=== PATIENT | male | born 2000 | race Two or more races ===

== ENCOUNTER 2025-03-11 16:46 | Emergency (ER) | payer OTHER ==
[~2025-03-11] VITALS: Ht 175.3 cm; Wt 108.3 kg
[2025-03-11 17:25] VITALS: TEMP 98.5
[2025-03-11 18:12] LABS: Urine Protein, UAD Negative (Negative)
[2025-03-11 18:35] LABS: Hematocrit 48.9 % (41.0-53.0); Hemoglobin 16.6 g/dL (13.5-17.5); Mean Corpuscular Hemoglobin 27.9 pg (28.0-32.0); Mean Corpuscular Volume 82.3 fL (80.0-100.0); Nucleated Red Blood Cells % 0.1 %
[2025-03-11 18:58] LABS: Alkaline Phosphatase 78 U/L (46-116); Anion Gap 10 (5-15); BUN/Creatinine Ratio 13.8 (10.0-20.0); Blood Urea Nitrogen 13 mg/dL (9-23); Carbon Dioxide 29 mmol/L (20-31); Chloride 105 mmol/L (98-107); Glucose 91 mg/dL (74-106); Potassium 4.1 mmol/L (3.5-5.1); Sodium 144 mmol/L (136-145); Total Protein 7.7 g/dL (5.7-8.2)
[2025-03-11 18:59] LABS: Bilirubin, Total 0.4 mg/dL (0.2-1.0)
[2025-03-11 19:00] LABS: Alanine Aminotransferase 49 U/L (7-40); Albumin 5.2 g/dL (3.2-4.8); Calcium 10.5 mg/dL (8.7-10.4)
--- NOTE | 2025-03-11 19:04 | DVH ---
ULTRASOUND OF SCROTUM AND CONTENTS. INDICATION: R testicular swelling r/o torsion COMPARISON: None TECHNIQUE: Multiple real-time grayscale sonographic and color and duplex Doppler images of the scrotu m and its contents were obtained. FINDINGS: The right testicle measures 3.8 cm. The left testicle measures 4.5 cm. Both testicles demonstrate homogeneous echotexture without evidence of focal lesions. Type calcificat ions are seen bilaterally, benign The right epididymal head is not clearly visualized. The left epididymal head measures up to 1 cm an d is unremarkable Subsequent color and duplex Doppler interrogation of the testes demonstrated symmetric normal vascula r flow to both testicles. Small fat containing right inguinal hernia is incidentally noted. No focal areas of hyperemia were seen. IMPRESSION: 1. No evidence of testicular torsion or left-sided epididymitis. 2. Please note that the right epididymal head was not clearly visualized in this examination 3. Small fat containing right inguinal hernia is incidentally noted.
[2025-03-11] MEDS: KETOROLAC TROMETH 60MG/2ML VIAL IM ONE (19:15)
--- NOTE | 2025-03-11 19:15 | ED.PDOC ---
General HPI Comments 24y M who presents to the ED for chief complaint of groin pain. Pt states he has been having lower abdominal pain radiating to the R groin since Sunday, for the past 4 days. Pt states he has also noticed increased swelling to the R testicle since. Pt states the pain is sharp, intermittent, with no associated exacerbating or relieving factors. Pt has no associated symptoms. Pt otherwise has noted stable vitals with temp of 98.5F, RR, 18, heart rate 76 and BP of 131/84. Pt otherwise denies any other symptoms at this time. Chief Complaint: Abdominal Pain Time Seen by MD: 18:30 Primary Care Provider: NONE Reviewed notes: Medications, Allergies Allergies: Coded Allergies: NO KNOWN ALLERGIES (Unverified , 03/11/25) Home Meds Active Scripts Hydrocodone-Acetaminophen (Hydrocodone Bitartrate/AC 5-325 mg) 1 Tab Tab, 1 TAB PO Q6HP PRN, #20 TAB Prn breakthrough pain Prov:SHABNAM PANDA MD 03/11/25 Ibuprofen Micronized (Ibuprofen) 800 Mg Tab, 800 MG PO Q8HP PRN, #30 TAB Prn pain. Take with food. Prov:SHABNAM PANDA MD 03/11/25 Information Source: Patient Mode of Arrival: Ambulatory Past Medical History PAST MEDICAL HISTORY: Denies Surgical History: Denies all surgeries Family History Family History: Reviewed,noncontributory to illness Social History Smoker: Non-Smoker Alcohol: Denies ETOH Use Drugs: Denies Drug Use Constitutional: denies: chills, diaphoresis, fatigue, fever, malaise, sweats, weakness, others EENTM: denies: blurred vision, double vision, ear bleeding, ear discharge, ear drainage, ear pain, ear ringing, eye pain, eye redness, hearing loss, mouth pain, mouth swelling, nasal discharge, nose bleeding, nose congestion, nose pain, photophobia, tearing, throat pain, throat swelling, voice changes, others Respiratory: denies: cough, hemoptysis, orthopnea, SOB at rest, shortness of breath, SOB with excertion, stridor, wheezing, others Cardiovascular: denies: chest pain, dizzy spells, diaphoresis, Dyspnea on exertion, edema, irregular heart beat, left arm pain, lightheadedness, palpitations, PND, syncope, others Gastrointestinal: reports: abdominal pain; denies: abdomen distended, blood streaked bowels, constipated, diarrhea, dysphagia, difficulty swallowing, hematemesis, melena, nausea, poor appetite, poor fluid intake, rectal bleeding, rectal pain, vomiting, others Genitourinary: reports: testicle swelling; denies: burning, dysuria, flank pain, frequency, hematuria, incontinence, penile discharge, penile sore, pain, testicle pain, urgency, others Neurological: denies: dizziness, fainting, headache, left sided numbness, left sided weakness, numbness, paresthesia, pre-existing deficit, right sided numbness, right sided weakness, seizure, speech problems, tingling, tremors, weakness, others Musculoskeletal: denies: back pain, gout, joint pain, joint swelling, muscle pain, muscle stiffness, neck pain, others Integumetry: denies: bruises, change in color, change in hair/nails, dryness, laceration, lesions, lumps, rash, wounds, others Allergic/Immunocompromised: denies: Difficulty Healing, Frequent Infections, Hives, Itching, others Hematologic/Lymphatic: denies: anemia, blood clots, easy bleeding, easy bruising, swollen glands, others Endocrine: denies: excessive hunger, excessive sweating, excessive thirst, excessive urination, flushing, intolerance to cold, intolerance to heat, une xplained weight gain, unexplained weight loss, others Psychiatric: denies: anxiety, bipolar disorder, depression, hopeless, panic disorder, schizophrenia, sleepless, suicidal, others All Other Systems: Reviewed and Negative Physical Exam General Appearance: No Apparent Distress, Obese HEENT: Other (Pupils and face symmetric. Moist mucous membranes.) Neck: Full Range of Motion, Normal Inspection Respiratory: Lungs Clear, No Accessory Muscle Use, No Respiratory Distress, Normal Breath Sounds Cardiovascular: No Edema, No JVD, Regular Rate/Rhythm Breast Exam: Deferred Gastrointestinal: Soft, Suprapubic, Tenderness Genitalia: Other (Prominence of the right scrotal area with soft tissue tenderness. No discoloration. Normal testicular lie.) Pelvic: Deferred Rectal: Deferred Extremities: Normal inspection, Normal range of motion, Non-tender, No pedal edema Neurologic: Alert (Oriented x4), Normal Affect, Normal Mood, Other (Ambulatory) Cerebellar Function: NOT DONE Reflexes: NOT DONE Skin: Dry, Normal Color, Warm Lymphatic: NOT DONE Was a procedure done? Was a procedure done?: Yes Sedation Sedation?: No Other Procedure Procedure Manual reduction of indirect right inguinal hernia Indication Indirect right inguinal hernia with omental fat Anesthetic None Success Pain improved. Informed consent obtained: Yes Risks, benefits, and alternati: Yes Notes Reduction was performed using direct digital pressure within the right inguinal canal. The procedure was performed by Kenneth Ron NP under my direct supervision . Patient reported persistent but improved pain postprocedure. Differential Diagnosis Kidney stone (Female): N/A Penile/Scrotal: Epidiymitis, Prostatitis, STD, UTI, Hydrocele, Testicular Torsion, Other (hernia, kidney stone, among others) X-Ray, Labs, Meds, VS Vital Signs Date Time Temp Pulse Resp B/P (MAP) Pulse Ox O2 Delivery O2 Flow Rate FiO2 03/11/25 19:24 76 18 96 Room Air* 0 21 03/11/25 19:24 76 19 131/84 (100) 96 03/11/25 17:25 98.5 76 18 131/84 (100) 96 98.5 Lab Test 03/11/25 18:21 03/11/25 17:40 Range/Units White Blood Count 8.2 4.4-10.8 10^3/uL Red Blood Count 5.94 H 4.5-5.90 10^6/uL Hemoglobin 16.6 13.5-17.5 g/dL Hematocrit 48.9 41.0-53.0 % Mean Corpuscular Volume 82.3 80.0-100.0 fL Mean Corpuscular Hemoglobin 27.9 L 28.0-32.0 pg Mean Corpuscular Hemoglobin Concent 33.9 32.0-36.0 g/dL Red Cell Distribution Width 13.6 11.8-14.3 % Platelet Count 343 140-450 10^3/uL Mean Platelet Volume 7.5 6.9-10.8 fL Neutrophils (%) (Auto) 68.6 37.0-80.0 % Lymphocytes (%) (Auto) 23.1 10.0-50.0 % Monocytes (%) (Auto) 7.2 0.0-12.0 % Eosinophils (%) (Auto) 0.6 0.0-7.0 % Basophils (%) (Auto) 0.5 0.0-2.0 % Neutrophils # (Auto) 5.6 1.6-8.6 10 ^3/uL Lymphocytes # (Auto) 1.9 0.4-5.4 10 ^3/uL Monocytes # (Auto) 0.6 0-1.3 10 ^3/uL Eosinophils # (Auto) 0 0-0.8 10 ^3/uL Basophils # (Auto) 0 0-0.2 10 ^3/uL Nucleated Red Blood Cells 0.1 % Sodium Level 144 136-145 mmol/L Potassium Level 4.1 3.5-5.1 mmol/L Chloride Level 105 98-107 mmol/L Carbon Dioxide Level 29 20-31 mmol/L Anion Gap 10 5-15 Blood Urea Nitrogen 13 9-23 mg/dL Creatinine 0.94 0.700-1.30 mg/dL Glomerular Filtration Rate Calc 116 >90 mL/min BUN/Creatinine Ratio 13.8 10.0-20.0 Serum Glucose 91 74-106 mg/dL Calcium Level 10.5 H 8.7-10.4 mg/dL Total Bilirubin 0.4 0.2-1.0 mg/dL Aspartate Amino Transferase (AST) 22 13-40 U/L Alanine Aminotransferase (ALT) 49 H 7-40 U/L Alkaline Phosphatase 78 46-116 U/L Total Protein 7.7 5.7-8.2 g/dL Albumin 5.2 H 3.2-4.8 g/dL Urine Color Yellow Yellow Urine Clarity Clear Clear Urine pH 6.0 5.0-9.0 Urine Specific [place] 1.031 1.001-1.035 Urine Protein Negative Negative Urine Ketones Negative Negative Urine Blood Negative Negative /uL Urine Nitrite Negative Negative Urine Bilirubin Negative Negative Urine Urobilinogen Normal Negative mg/dL Urine Leukocyte Esterase Negative Negative /uL Urine RBC 2 0 - 3 /hpf Urine Microscopic WBC 1 0-3 /HPF Urine Squamous Epithelial Cells Few <5 /hpf Urine Bacteria None seen None Seen /hpf Urine Mucus Few None Seen Urine Glucose Normal Normal mg/dL Current Medications Medications (Trade) Dose Ordered Sig/Woody Route Start Time Stop Time Status Last Admin Ketorolac Tromethamine (Toradol Injection) 60 mg ONCE ONCE IM 03/11/25 18:15 03/11/25 18:41 DC 03/11/25 19:[address] [address] Ph: [phone] DIAGNOSTIC IMAGING Diagnostic Imaging Report : [id number] Signed PATIENT: BAIRON FONTANEZ ACCT: [id number] UNIT: [id number] : 2000 LOC: ER ROOM / BED: / AGE / SEX: 24 / M ADM STATUS: REG ER SERVICE 180 ORDERING PHYSICIAN: SHABNAM PANDA MD PROCEDURE(s): TESUS - TESTICULAR ULTRASOUND REASON: R testicular swelling r/o torsion ORDER NUMBER(s): [id number], ACCESSION NUMBER(s): [id number] ULTRASOUND OF SCROTUM AND CONTENTS. INDICATION: R testicular swelling r/o torsion COMPARISON: None TECHNIQUE: Multiple real-time grayscale sonographic and color and duplex Doppler images of the scrotum and its contents were obtained. FINDINGS: The right testicle measures 3.8 cm. The left testicle measures 4.5 cm. Both testicles demonstrate homogeneous echotexture without evidence of focal lesions. Type calcifications are seen bilaterally, benign The right epididymal head is not clearly visualized. The left epididymal head measures up to 1 cm and is unremarkable Subsequent color and duplex Doppler interrogation of the testes demonstrated symmetric normal vascular flow to both testicles. Small fat containing right inguinal hernia is incidentally noted. No focal areas of hyperemia were seen. IMPRESSION: 1. No evidence of testicular torsion or left-sided epididymitis. 2. Please note that the right epididymal head was not clearly visualized in this examination 3. Small fat containing right inguinal hernia is incidentally noted. ATED BY: LISSETTE GARRIDO MD DICTATED DATE/TIME: 03/11/251901 SIGNED BY: LISSETTE GARRIDO MD SIGNED DATE/TIME: 03/11/251901 CC: [address] [address] Ph: [phone] DIAGNOSTIC IMAGING Diagnostic Imaging Report : [id number] Signed PATIENT: BAIRON FONTANEZ ACCT: [id number] UNIT: [id number] : 2000 LOC: ER ROOM / BED: / AGE / SEX: 24 / M ADM STATUS: REG ER SERVICE 07 ORDERING PHYSICIAN: SHABNAM PANDA MD PROCEDURE(s): ABPL - CT AB PEL WO CON-NO ORAL OR IV REASON: low abd pain radiating to R testicle ORDER NUMBER(s): [id number], ACCESSION NUMBER(s): [id number] COMPUTERIZED TOMOGRAPHY ABDOMEN AND PELVIS WITHOUT CONTRAST REASON FOR EXAM: low abd pain radiating to R testicle COMPARISON: None TECHNIQUE: Spiral scans were acquired from the diaphragm to the symphysis pubis without intravenous contrast administration. 2-D coronal and sagittal reformatted images were provided. Radiation optimization: All CT scans at this facility use at least one of these dose optimization techniques: Automated exposure control mA and/or kV adjustment per patient size (includes targeted exams where dose is matched to clinical indication) or iterative reconstruction. RADIATION DOSE: CTDI: 21 mGy DLP: 1250 mGy-cm FINDINGS: There is minimal dependent atelectasis in bilateral lower lobes. There is no pleural effusion. There is no pericardial effusion. The spleen is not enlarged. The liver is normal in size and contour. Evaluation of the abdominal organs is suboptimal in the absence of intravenous contrast. No calcified gallstone is identified. Unenhanced appearance of the pancreas is grossly unremarkable. The adrenal glands are normal. The kidneys are similar in size. There is no hydronephrosis of either kidney. No renal, ureteral, or bladder calculus is identified. The urinary bladder is decompressed and is suboptimally evaluated. There is an indirect right inguinal hernia containing abdominal fat and vessels. No free fluid is identified in the abdomen or pelvis. There is no pathologic lymphadenopathy by size criteria. There is no abdominal aortic aneurysm. There is no pathologic distention of the small bowel to suggest obstruction. The colonic stool burden is small. The appendix is normal. No acute osseous abnormality is identified. IMPRESSION: Indirect right inguinal hernia containing abdominal fat. Correlate clinically with physical exam to determine reduceability versus incarceration. Normal appendix ATED BY: DENNIS DENNY MD DICTATED DATE/TIME: 03/11/252030 SIGNED BY: DENNIS DENNY MD SIGNED DATE/TIME: 03/11/252030 CC: X-Ray, Labs, Meds, VS Comment 24-year-old male with no significant past medical history complaining of lower abdominal pain radiating to the right testicle Vitals unremarkable Exam remarkable for right scrotal prominence and tenderness Rhythm strip independently interpreted by me: Sinus rhythm, rate 74, no ectopy. Testicular ultrasound: IMPRESSION: 1. No evidence of testicular torsion or left-sided epididymitis. 2. Please note that the right epididymal head was not clearly visualized in this examination 3. Small fat containing right inguinal hernia is incidentally noted. CT abdomen and pelvis IMPRESSION: Indirect right inguinal hernia containing abdominal fat. Correlate clinically with physical exam to determine reduceability versus incarceration. Normal appendix CBC, CMP and UA unremarkable for any abnormality of acute significance Patient treated with the following in the ED: Toradol 60 mg IM Manual reduction was performed using direct digital pressure in the inguinal canal. Please see procedure notes for details. On re-evaluation, patient stated he was comfortable. Vitals were stable. Patient appears stable for discharge with close outpatient follow-up with a general surgeon. He will be referred to Dr. Russo. Rx ibuprofen, [place]. Light duty at work. Time of 1ST Reevaluation: 21:42 Reevaluation 1ST: Improved Patient Education/Counseling: Diagnosis, Treatment Family Education/Counseling: No Family Present SEPSIS Sepsis Screen Date sepsis recognized/suspect: Mar 11, 2025 Time Sepsis recognized/suspect: 1699 Recent Procedure: No On Antibiotic Therapy: No Respiratory Rate >20: No Heart Rate >90: No Temp<36 C (96.8 F) or >38.3 C: No SBP <90 or MAP <65 mmHG: No New Acute Mental Status Change: No Is the patient on CPAP, BIPAP,: No Physician Orders Testicular Ultrasound (03/11/25 18:04) Ct Ab Pel Wo Con-No Oral Or Iv (03/11/25 19:08) Vital Signs Date Time Temp Pulse Resp B/P (MAP) Pulse Ox O2 Delivery O2 Flow Rate FiO2 03/11/25 19:24 76 18 96 Room Air* 0 21 03/11/25 19:24 76 19 131/84 (100) 96 03/11/25 17:25 98.5 76 18 131/84 (100) 96 98.5 Laboratory Tests Test 03/11/25 18:21 White Blood Count 8.2 10^3/uL (4.4-10.8) Medications Medications Dose Ordered Sig/Woody Route Start Time Stop Time Status Last Admin Dose Admin Ketorolac Tromethamine 60 mg ONCE ONCE IM 03/11/25 18:15 03/11/25 18:41 DC 03/11/25 19:15 Departure 1 Departure Time of Disposition: 21:45 Impression: Primary Impression: Indirect right inguinal hernia Disposition: HOME / SELF CARE / HOMELESS Condition: Stable Referrals: JEZ RUSSO MD Additional Instructions: Your CT scan and ultrasound showed a right inguinal hernia containing fat. We have attempted to push the hernia back into place in the ED, however it may return to its previous position. Follow-up with Dr. Russo, general surgeon, for further evaluation of your hernia. Wear a scrotal support at work or if performing high impact activity. Do not perform heavy lifting greater than 10 lb for now. Take pain medication as directed. Return to ER for persistent or worsening symptoms. [place] [address] Ph: [phone] DIAGNOSTIC IMAGING Diagnostic Imaging Report : [id number] Signed PATIENT: BAIRON FONTANEZ ACCT: [id number] UNIT: [id number] : 2000 LOC: ER ROOM / BED: / AGE / SEX: 24 / M ADM STATUS: REG ER SERVICE 07 ORDERING PHYSICIAN: SHABNAM PANDA MD PROCEDURE(s): ABPL - CT AB PEL WO CON-NO ORAL OR IV REASON: low abd pain radiating to R testicle ORDER NUMBER(s): [id number], ACCESSION NUMBER(s): [id number] COMPUTERIZED TOMOGRAPHY ABDOMEN AND PELVIS WITHOUT CONTRAST REASON FOR EXAM: low abd pain radiating to R testicle COMPARISON: None TECHNIQUE: Spiral scans were acquired from the diaphragm to the symphysis pubis without intravenous contrast administration. 2-D coronal and sagittal reformatted images were provided. Radiation optimization: All CT scans at this facility use at least one of these dose optimization techniques: Automated exposure control mA and/or kV adjustment per patient size (includes targeted exams where dose is matched to clinical indication) or iterative reconstruction. RADIATION DOSE: CTDI: 21 mGy DLP: 1250 mGy-cm FINDINGS: There is minimal dependent atelectasis in bilateral lower lobes. There is no pleural effusion. There is no pericardial effusion. The spleen is not enlarged. The liver is normal in size and contour. Evaluation of the abdominal organs is suboptimal in the absence of intravenous contrast. No calcified gallstone is identified. Unenhanced appearance of the pancreas is grossly unremarkable. The adrenal glands are normal. The kidneys are similar in size. There is no hydronephrosis of either kidney. No renal, ureteral, or bladder calculus is identified. The urinary bladder is decompressed and is suboptimally evaluated. There is an indirect right inguinal hernia containing abdominal fat and vessels. No free fluid is identified in the abdomen or pelvis. There is no pathologic lymphadenopathy by size criteria. There is no abdominal aortic aneurysm. There is no pathologic distention of the small bowel to suggest obstruction. The colonic stool burden is small. The appendix is normal. No acute osseous abnormality is identified. IMPRESSION: Indirect right inguinal hernia containing abdominal fat. Correlate clinically with physical exam to determine reduceability versus incarceration. Normal appendix [place] [address] Ph: [phone] DIAGNOSTIC IMAGING Diagnostic Imaging Report : [id number] Signed PATIENT: BAIRON FONTANEZ ACCT: [id number] UNIT: [id number] : 2000 LOC: ER ROOM / BED: / AGE / SEX: 24 / M ADM STATUS: REG ER SERVICE 1807 ORDERING PHYSICIAN: SHABNAM PANDA MD PROCEDURE(s): TESUS - TESTICULAR ULTRASOUND REASON: R testicular swelling r/o torsion ORDER NUMBER(s): [id number], ACCESSION NUMBER(s): [id number] ULTRASOUND OF SCROTUM AND CONTENTS. INDICATION: R testicular swelling r/o torsion COMPARISON: None TECHNIQUE: Multiple real-time grayscale sonographic and color and duplex Doppler images of the scrotum and its contents were obtained. FINDINGS: The right testicle measures 3.8 cm. The left testicle measures 4.5 cm. Both testicles demonstrate homogeneous echotexture without evidence of focal le sions. Type calcifications are seen bilaterally, benign The right epididymal head is not clearly visualized. The left epididymal head measures up to 1 cm and is unremarkable Subsequent color and duplex Doppler interrogation of the testes demonstrated symmetric normal vascular flow to both testicles. Small fat containing right inguinal hernia is incidentally noted. No focal areas of hyperemia were seen. IMPRESSION: 1. No evidence of testicular torsion or left-sided epididymitis. 2. Please note that the right epididymal head was not clearly visualized in this examination 3. Small fat containing right inguinal hernia is incidentally noted. e-Prescriptions Hydrocodone-Acetaminophen (Hydrocodone Bitartrate/AC 5-325 mg) 1 Tab Tab 1 TAB PO Q6HP PRN, #20 TAB Prn breakthrough pain Prov: SHABNAM PANDA MD 03/11/25 Ibuprofen Micronized (Ibuprofen) 800 Mg Tab 800 MG PO Q8HP PRN, #30 TAB Prn pain. Take with food. Prov: SHABNAM PANDA MD 03/11/25 Discharged With: Self Critical Care Note Critical Care Time?: No Stability Stability form required: No Heart Score Heart Score: Heart Score Response (Comments) Value History N/A 0 EKG N/A 0 Age N/A 0 Risk Factors N/A 0 Troponin N/A 0 Total 0 I personally scribed for SHABNAM PANDA MD) on 03/11/25 at 19:15. Electronically submitted by Lin HARRINGTON). I personally scribed for SHABNAM PANDA MD) on 03/11/25 at 19:56. Electronically submitted by Lin Holley ([email or web address]). I personally scribed for SHABNAM PANDA MD) on 03/11/25 at 20:39. Electronically submitted by Lin [employer]). SHABNAM PANDA MD Mar 11, 2025 19:15
[2025-03-11 19:24] VITALS: BP 131/84; PULSE 76; RESP 18; O2SAT 96
--- NOTE | 2025-03-11 20:34 | DVH ---
COMPUTERIZED TOMOGRAPHY ABDOMEN AND PELVIS WITHOUT CONTRAST REASON FOR EXAM: low abd pain radiating to R testicle COMPARISON: None TECHNIQUE: Spiral scans were acquired from the diaphragm to the symphysis pubis without intravenous c ontrast administration. 2-D coronal and sagittal reformatted images were provided. Radiation optimiza tion: All CT scans at this facility use at least one of these dose optimization techniques: Automated exposure control mA and/or kV adjustment per patient size (includes targeted exams where dose is mat ched to clinical indication) or iterative reconstruction. RADIATION DOSE: CTDI: 21 mGy DLP: 1250 mGy-cm FINDINGS: There is minimal dependent atelectasis in bilateral lower lobes. There is no pleural effusion. There is no pericardial effusion. The spleen is not enlarged. The liver is normal in size and contour. Evaluation of the abdominal or dennis is suboptimal in the absence of intravenous contrast. No calcified gallstone is identified. Une nhanced appearance of the pancreas is grossly unremarkable. The adrenal glands are normal. The kidne ys are similar in size. There is no hydronephrosis of either kidney. No renal, ureteral, or bladder calculus is identified. The urinary bladder is decompressed and is suboptimally evaluated. There is a n indirect right inguinal hernia containing abdominal fat and vessels. No free fluid is identified in the abdomen or pelvis. There is no pathologic lymphadenopathy by size criteria. There is no abdomin al aortic aneurysm. There is no pathologic distention of the small bowel to suggest obstruction. The colonic stool burden is small. The appendix is normal. No acute osseous abnormality is identified. IMPRESSION: Indirect right inguinal hernia containing abdominal fat. Correlate clinically with physical exam to determine reduceability versus incarceration. Normal appendix
[2025-03-11] MEDS ORDERED: IBUP-1455 PO (21:47)
[2025-03-11] MEDS ORDERED: HYDR-4902 PO (21:47)
== END 2025-03-11 23:49 | disposition home or self-care (01) ==
LOC: ER 16:46
DX: K40.90 Unilateral inguinal hernia, without obstruction or gangrene, not specified as recurrent (principal); N50.89 Other specified disorders of the male genital organs
CPT/HCPCS: 36415; 74176; 76870; 80053; 81001; 85025; 96372; 99285; J1885